=== PATIENT | female | born 1980 | race Caucasian/White ===

== ENCOUNTER → 2021-03-19 | Outpatient (CLI) | payer MEDICARE, OTHER ==
[2021-03-19 15:51] LABS: HCT 41.5 % (34.0-46.0); HGB 14.1 gm/dL (11.4-16.0); MCH 31.6 pg (25.0-35.0); MCHC 34.1 g/dL (31.0-37.0); MCV 92.8 fL (80.0-100.0); Mean Platelet Volume 7.9; Platelet Count 195 k/uL (150-450); RBC 4.48 m/uL (3.80-5.40); RDW 12.5 % (11.5-15.5); WBC 7.5 k/uL (3.8-10.6)
[2021-03-19 16:01] LABS: African American GFR (CKD) >90 (>60 ml/min/1.73 sqM); Anion Gap 6 mmol/L; Blood Urea Nitrogen 15 mg/dL (7-17); Carbon Dioxide 30 mmol/L (22-30); Chloride 105 mmol/L (98-107); Non-African American GFR(CKD) >90 (>60 ml/min/1.73 sqM); Potassium 4.4 mmol/L (3.5-5.1); Sodium 141 mmol/L (137-145)
== END | disposition home or self-care (01) ==
LOC: LABWHC1 14:39
PROVIDERS: ATTEND Internal Medicine Clinical Cardiac Electrophysiology
DX: Z01.812 Encounter for preprocedural laboratory examination (principal); I47.2 Ventricular tachycardia
CPT/HCPCS: 36415; 80051; 82565; 84520; 85027

== ENCOUNTER 2021-03-27 09:57 | Observation (INO) | payer MEDICARE, OTHER ==
[2021-03-25 13:36] VITALS: BMI 37.9
[~2021-03-27 09:57] MED LIST: LACTATED RINGERS 1,000 ML IV SCH; SODIUM CHLORIDE 0.9% 1,000 ML IV SCH
[2021-03-27] MEDS ORDERED: SODIUM CHLORIDE 0.9% 1,000 ML IV ONE (10:32)
[2021-03-27] MEDS ORDERED: ONDANSETRON 4 MG/2 ML VIAL ONE (15:36)
[2021-03-27] MEDS ORDERED: diphenhydrAMINE 50 MG/ML 1 ML VIAL ONE (15:36)
[2021-03-27] MEDS ORDERED: ISOPROTERENOL 250 MCG/1.25 ML SYR IV ONE (15:36)
[2021-03-27] MEDS ORDERED: HYDROmorphone (PF) 1 MG/ML ONE (15:36)
[2021-03-27] MEDS ORDERED: fentaNYL (PF) 50 MCG/ML 2 ML AMP ONE (15:36)
[2021-03-27] MEDS ORDERED: MIDAZOLAM 2 MG/2 ML VIAL ONE (15:36)
[2021-03-27] MEDS ORDERED: LIDOCAINE 1% INJ 10MG/ML (20 ML MDV) ONE (15:50)
[2021-03-27] MEDS ORDERED: LIDOCAINE 1% INJ 10MG/ML (20 ML MDV) SQ ONE (16:20)
--- NOTE | 2021-03-27 17:31 | P.EPPROC ---
- EP Procedure Note Electrophysiology Procedure Note: Diagnosis Recurrent palpitations of increasing frequency and duration Status post accessory pathway ablation, epicardial, many years back Normal 12-lead EKG without evidence for accessory pathway conduction Result Normal sinus node function Normal AV node function Agatha response to Parahisian pacing Inducible atrial fibrillation with a stimulation on Isuprel She had a rapid atrial tachycardia cycle length 183 ms concentric activation which later degenerated and atrial fibrillation and then converted spontaneously to sinus rhythm once Isuprel was turned off Patient stated that this felt very similar to her clinical arrhythmia Plan ESR, CRP Assess activity of sarcoidosis Reevaluation first pulmonary sarcoidosis. Patient sees Dr. Ochoa, pulmonary medicine If inactive then proceed with in A. fib ablation in the future Patient will have to be anticoagulated for at least 4 weeks prior to the procedure Procedure details Patient was brought to the EP lab in a fasting state. Written informed consent was obtained prior to the procedure The right and left groins were prepped and draped as a protocol. Venous sheaths were placed in the right femoral vein Catheters placed in the high right atrium His bundle area and Glenn sinus Baseline measurements were as follows Sinus cycle length 840 ms, ND interval 131 ms, QRS 103 and QT 360 ms AH interval 120 ms and HV interval 35 ms State pacing from the high right atrium and the coronary sinus did not reveal any evidence for slow pathway conduction noted reveal any evidence for delta waves AV node Wenckebach block 370 ms Agatha response to Parahisian pacing Sinus node recovery times at 600, 504 100 ms were 1280, 1346 and 1170 ms line corresponding corrected sinus node recovery times were mildly prolonged at a pacing cycle length of 500 ms Atrial extra stimulation was performed from the high right atrium and from the coronary sinus after double extrastimuli Post ablation performed No arrhythmias induced Isuprel started Extra stimulation performed from the atria line burst stimulation from the high right atrium, on Isuprel-induced a very rapid atrial tachycardia with a cycle length of 183 ms concentric activation that later degenerated into atrial fibrillation. Once Isuprel was stopped she spontaneously converted to sinus rhythm with the atrial fibrillation lasted at least 10 minutes The patient is awake for most of the procedure and she stated that this was 95% similar to her clinical arrhythmia
--- NOTE | 2021-03-27 17:38 | P.PRLE ---
RE: Zulema Turner Dear Dr. Juli Fernandeshussein has been experiencing recurrent palpitations of increasing frequency and duration. She is quite symptomatic from these episodes Previously, many years back and performed an epicardial accessory pathway ablation She underwent a diagnostic EP study which revealed no evidence for accessory pathway. A prior ablation was successful However we were able to induce a very rapid atrial tachycardia/atrial fibrillation. She was quite symptomatic from this and stated that this is very similar to her clinical episodes In addition she has occasional spontaneous PVCs and I think her main clinical arrhythmia is atrial fibrillation I would recommend in A. fib ablation but prior to doing so we should confirm that the sarcoidosis is under control I have sent an ESR and CRP today and she will see Dr. Martinez/Raghavendra Ochoa as an outpatient for reevaluation of her sarcoidosis Thank you for entrusting me with the care of the patient Warm regards Sincerely Chu Leahy ,
[2021-03-27] MEDS ORDERED: ACETAMINOPHEN IV (For NPO) 1,000 MG in EMPTY BAG 1 BAG IVPB ONE (18:00)
[2021-03-27] MEDS ORDERED: ONDANSETRON 4 MG/2 ML VIAL IVP STA (19:26)
[2021-03-28] MEDS ORDERED: NITROGLYCERIN SL TABS 0.4 MG TAB SUBLINGUAL ONE (00:31)
[2021-03-28] MEDS: ACETAMINOPHEN TAB 325 MG TAB PO PRN ×2 (00:51→08:25)
[2021-03-28 01:19] LABS: African American GFR (CKD) >90 (>60 ml/min/1.73 sqM); Anion Gap 6 mmol/L; Blood Urea Nitrogen 14 mg/dL (7-17); Carbon Dioxide 28 mmol/L (22-30); Chloride 102 mmol/L (98-107); Glucose 107 mg/dL (74-99); Non-African American GFR(CKD) >90 (>60 ml/min/1.73 sqM); Potassium 4.3 mmol/L (3.5-5.1); Sodium 136 mmol/L (137-145)
[2021-03-28] MEDS: HEPARIN SODIUM,PORCINE/PF 5,000 UNIT/0.5 ML SYRINGE SQ SCH ×2 (08:17→20:27)
--- NOTE | 2021-03-28 12:30 | PN ---
PROGRESS NOTE HISTORY: Zulema Turner is a 40-year-old female with known sarcoidosis and history of an epicardial accessory pathway ablation many years back. She is complaining of palpitations and underwent a diagnostic EP study yesterday. This revealed inducible atrial fibrillation on Isuprel. There was no evidence for accessory pathway conduction. This morning she complains of recurrent chest discomfort which is localized, and mid and upper back discomfort. She has had 3 EKGs, all of which show sinus rhythm with early repolarization abnormality in the ST segments and no serial changes at all. EXAM: Her heart sounds are normal. No murmurs or gallops. No rub. Vitals, blood pressure 120/60 mmHg. Heart rates are in the 60s and 70s. Head and neck examination are normal. Heart sounds are normal. Her groin has healed well completely. This morning, she complains of more nausea and constant chest discomfort which is localized as well as constant discomfort in the mid back and she has a lot of back problems. LABS: Reviewed. The ESR is 17. His C-reactive protein is 3.0. She does have a history of sarcoidosis. PLAN: In view of her recurrent nausea and chest discomfort and dizziness, we will keep her for day today and monitor on telemetry and a Femstop will be placed. She will receive Zofran. She also will receive DVT prophylaxis. Following that, I would like to get up and walk around. She will be scheduled for an atrial fibrillation ablation and early anticoagulation at least a month prior to that. She will also be referred back to Dr. Jerrell Ochoa for evaluation of pulmonary sarcoidosis. MMODL / IJN: [id number] /
[2021-03-28] MEDS: HYDROcodone/APAP 5-325MG 1 EACH TAB PO PRN ×2 (14:23→20:27)
[2021-03-28] MEDS: ONDANSETRON 4 MG/2 ML VIAL IVP PRN ×2 (14:24→20:26)
[2021-03-29] MEDS: ONDANSETRON 4 MG/2 ML VIAL IVP PRN (06:01)
[2021-03-29] MEDS: HYDROcodone/APAP 5-325MG 1 EACH TAB PO PRN (06:01)
[2021-03-29] MEDS: HEPARIN SODIUM,PORCINE/PF 5,000 UNIT/0.5 ML SYRINGE SQ SCH (10:00)
[2021-03-29 10:38] VITALS: BP 109/66; PULSE 64; RESP 18; TEMP 98.1
--- NOTE | 2021-03-29 20:12 | DS ---
DISCHARGE SUMMARY DATE OF ADMISSION: 03/27/2021. DATE OF DISCHARGE: 03/29/2021. DIAGNOSES: 1. Palpitations and possible SVT. 2. Paroxysmal atrial fibrillation. HISTORY: This patient was admitted electively, underwent EP procedure, did not have any a SVT that was inducible, but had easily inducible atrial fib. Was advised to have atrial fibrillation ablation later date. She is doing well. Vital signs stable, maintaining sinus rhythm. S1-S2 heard normally. Heart sounds are distantly. Lungs are clear. Abdomen and lower extremity exams unchanged. Right groin is clean and dry with a good pulse. PLAN: Continue current medications, increase activity, discharge her today, and Dr. Leahy will see her in a week. MMODL / IJN: [id number] /
== END 2021-03-29 13:09 | disposition home or self-care (01) ==
LOC: CATHEP 09:57 → 3SCARD 15:05 → CATHEP 03-28 15:42
PROVIDERS: ADMIT Internal Medicine Clinical Cardiac Electrophysiology; ATTEND Internal Medicine Clinical Cardiac Electrophysiology
DX: I48.0 Paroxysmal atrial fibrillation (principal); D86.9 Sarcoidosis, unspecified; I45.6 Pre-excitation syndrome; Z20.822 Contact with and (suspected) exposure to COVID-19; Z87.81 Personal history of (healed) traumatic fracture; Z88.0 Allergy status to penicillin; Z91.048 Other nonmedicinal substance allergy status; Z79.899 Other long term (current) drug therapy
CPT/HCPCS: 93005; 93623; 93620; 81025 ×2; 80048; 85652; 83735; 86140; 87635; G0378 ×2; C1894; C1769 ×2; C1730; J2250; J1200; J2405 ×3; J2001; J3010; J1170; J0131; J1644 ×2